=== PATIENT | male | born 1975 | race Caucasian/White ===

== ENCOUNTER 2020-04-17 13:17 | Inpatient (IN) | payer SELFPAY ==
[~2020-04-17] VITALS: Ht 172.7 cm; Wt 108.0 kg
[2020-04-17 13:41] LABS: NITRITE NEGATIVE (NEGATIVE)
[2020-04-17 13:42] LABS: BILIRUBIN NEGATIVE (NEGATIVE); KETONE MODERATE mg/dL (NEGATIVE); UROBILINOGEN NORMAL (NORMAL)
[2020-04-17 13:47] LABS: UDS - AMPHET POSITIVE QUAL (NEGATIVE); UDS - BARB NEGATIVE QUAL (NEGATIVE); UDS - BENZO POSITIVE QUAL (NEGATIVE); UDS - COCAINE NEGATIVE QUAL (NEGATIVE); UDS - OPIATE NEGATIVE QUAL (NEGATIVE); UDS - PCP NEGATIVE QUAL (NEGATIVE); UDS - THC NEGATIVE QUAL (NEGATIVE)
[2020-04-17 13:51] LABS: RED CELLS - URINE 0-5 /hpf (0-5); WHITE CELLS - URINE 0-5 /hpf (NEGATIVE)
[2020-04-17 13:52] LABS: BACTERIA FEW /hpf (NEGATIVE); EPITHELIAL CELLS 0-5 /hpf (0-5); HYALINE CAST 0-5 /lpf (NONE SEEN)
--- NOTE | 2020-04-17 14:00 | NUR ---
PATIENT REMAINS RESTING WITH EYES CLOSED AROUSES WITH PAINFUL STIMULAS
[2020-04-17 15:00] VITALS: BP 128/74
[2020-04-17 15:17] LABS: BASOPHILS 0.1 % (0-2); EOSINOPHILS 0 % (0-7); HEMATOCRIT 42.4 % (42.0-54.0); HEMOGLOBIN 14.7 g/dL (13.5-17.5); IMMATURE GRANULOCYTES 0.4 % (0-5); LYMPHOCYTES 10.9 % (15-50); MCH 31.5 pg (26.0-34.0); MCHC 34.7 g/dL (31.0-37.0); MCV 90.8 fL (80.0-100.0); MEAN PLATELET VOLUME 10.8 fL (7.4-10.4); MONOCYTES 8.6 % (2-11); PLATELET COUNT 228 10x3/uL (130-400); RBC 4.67 10x6/uL (4.20-6.10); RDW 14.1 % (11.5-14.5); WBC 17.8 10x3/uL (4.8-10.8)
[2020-04-17 15:28] LABS: CALCIUM 8.4 mg/dL (8.5-10.1); CARBON DIOXIDE 24.1 mmol/L (21.0-32.0); CREATININE - SERUM 1.4 mg/dL (0.6-1.3); POTASSIUM - SERUM 3.1 mmol/L (3.5-5.1)
[2020-04-17 15:35] LABS: ALBUMIN 3.3 g/dL (3.4-5.0); BILIRUBIN - TOTAL 1.43 mg/dL (0.2-1.3); PROTEIN - SERUM 7.1 g/dL (6.4-8.2)
[2020-04-17 17:00] VITALS: BP 124/71
[2020-04-17 19:00] VITALS: BP 122/75
--- NOTE | 2020-04-17 21:45 | NUR ---
PT DENIES SI AND HI. RASH ON AND WITH OPEN SITE UPPER LEFT REGION. ULCERATIVE AREA ABOVE LEFT KNEE. ULCERATIVE AREA ON RIGHT WRIST. PT IS PICKING AT WOUND SITES AND AT TIMES THEY ARE BLEEDING AND SEEPING.
[2020-04-17 23:00] VITALS: BP 157/100
--- NOTE | 2020-04-17 23:00 | NUR ---
WOUNDS DRESSED TO PREVENT PT PICKING AT SITES.
--- NOTE | 2020-04-17 23:09 | NUR ---
PT BATHED, WOUNDS CULTURED AND SENT TO LAB. PT RESTING IN BED, CALL LIGHT WITHJUAN R CARRASCO, WILL CONTINUE TO MONITOR.
[2020-04-18 00:30] VITALS: BP 150/84
[2020-04-18 01:48] VITALS: BP 121/60
--- NOTE | 2020-04-18 02:04 | NUR ---
INFUSION COMPLETE AT THIS TIME
--- NOTE | 2020-04-18 04:45 | NUR ---
POTASSIUM INFUSION COMPLETE AT THIS TIME
[2020-04-18 04:55] VITALS: BP 136/73
--- NOTE | 2020-04-18 05:00 | NUR ---
900ML OF URINE OUTPUT DRAINED FROM FRAZIER CATHETER AT THIS TIME
[2020-04-18 07:37] LABS: BASOPHILS 0.1 % (0-2); EOSINOPHILS 0.8 % (0-7); HEMATOCRIT 39.3 % (42.0-54.0); HEMOGLOBIN 13.5 g/dL (13.5-17.5); IMMATURE GRANULOCYTES 0.4 % (0-5); LYMPHOCYTES 14.6 % (15-50); MCHC 34.4 g/dL (31.0-37.0); MCV 90.3 fL (80.0-100.0); MEAN PLATELET VOLUME 10.7 fL (7.4-10.4); MONOCYTES 6.2 % (2-11); NEUTROPHILS 77.9 % (40-80); PLATELET COUNT 198 10x3/uL (130-400); RBC 4.35 10x6/uL (4.20-6.10)
[2020-04-18 07:38] LABS: WBC 9.7 10x3/uL (4.8-10.8)
[2020-04-18 08:00] LABS: CALCIUM 8.3 mg/dL (8.5-10.1); CARBON DIOXIDE 26.4 mmol/L (21.0-32.0); CHLORIDE - SERUM 106 mmol/L (98-107); GLUCOSE 88 mg/dL (74-106); POTASSIUM - SERUM 3.3 mmol/L (3.5-5.1); SODIUM 141 mmol/L (136-145)
[2020-04-18 08:01] LABS: CALC OSMOLALITY 282 mosm/kg (275-300); CREATININE - SERUM 0.8 mg/dL (0.6-1.3); UREA NITROGEN 21 mg/dL (7-18); eGFR NON AFRICAN AMERICAN > 90 mL/min (90-120)
[2020-04-18 08:15] VITALS: BP 131/86
--- NOTE | 2020-04-18 08:19 | NUR ---
awakened easily for breakfast. denmies need or c/o. appetite good
--- NOTE | 2020-04-18 09:20 | NUR ---
CLEOMYCIN 600 MG INFUSION COMPLETED @ 919
--- NOTE | 2020-04-18 16:32 | NUR ---
MEDICATION REGIMEN EXPLAINED TO PATIENT AND HE STATES HE IS ALLERGIC TO HALDOL. ASKED THE PATIENT WHAT REACTION HE HAS TO HALDOL AND HE STATES "IF YOU'RE GOING TO GIVE THAT TO ME THEN I NEED BENADRYL, BUT I DON'T WANT ANY DAMN HALDOL, IF YOU GIVE ME HALDOL, I'LL MARGARITA Y'ALL, AND I AIN'T TAKING NO GEODON EITHER, YOU CAN BRING ME ATIVAN AND SOMETHING TO DRINK AND LET ME GO. YOU AIN'T DOING NOTHING FOR ME ANYWAY." ATTEMPTED TO EDUCATE PATIENT REGARDING ANTIBIOTIC ADMINISTRATION, HE IS AGREEABLE TO ANTIBIOTICS IF HE GETS SODA.
[2020-04-18 16:40] VITALS: BP 136/88
--- NOTE | 2020-04-18 16:50 | NUR ---
DINNER TRAY PROVIDED TO PATIENT WITH 2 SODAS, MEDICATIONS ADMINISTERED, DENIES OTHER NEEDS, CALM AT THIS TIME.
--- NOTE | 2020-04-18 17:22 | NUR ---
CLINDAMYCIN INFUSION COMPLETE AT THIS TIME.
--- NOTE | 2020-04-18 18:48 | NUR ---
PT RESTING QUIETLY ON ER STRETCHER, RESPIRATIONS EVEN AND UNLABORED, NAD NOTED.
[2020-04-18 19:00] VITALS: BP 117/78
[2020-04-19] VITALS (16 sets, daily range): BP systolic 105–139; BP diastolic 62–97; BMI 36.7
--- NOTE | 2020-04-19 04:00 | NUR ---
PT IV INFILTATED PT DENIES PAIN IV D/C AND RESTARTED
--- NOTE | 2020-04-19 07:08 | NUR ---
REPORT GIVEN TO KALYN TRUJILLO.
--- NOTE | 2020-04-19 07:31 | NUR ---
CALL TO [facility] NURSE FOR CONSULT ON PTS WOUNDS.
--- NOTE | 2020-04-19 07:59 | NUR ---
PT SAT UP AND ATE BREAKFAST, PLEASANT, NO COMPLAINTS.
--- NOTE | 2020-04-19 09:04 | NUR ---
LAB INFORMED NURSE PT HAS STAPH INFECTION IN LEFT ARM. PLACE ON CONTACT PRECAUTIONS.
--- NOTE | 2020-04-19 09:15 | NUR ---
PT CONT. TO REST ON ER BED. IV INFUSING NO DISTRESS NOTED.
--- NOTE | 2020-04-19 09:38 | NUR ---
RESTING WITH EYES CLOSED NO DISTRESS NOTED.
--- NOTE | 2020-04-19 12:30 | CN ---
PATIENT NAME:STEPHANIE MARTINEZ MEDICAL RECORD: [id number] : 75 LOCATION:[facility]- ADMIT DATE: 04/18/20 ACCOUNT: [id number] CONSULTING PHYSICIAN: BEV MEDEROS MD REFERRING PHYSICIAN: TESSA CONNOLLY MD DATE OF CONSULTATION: 04/18/2020 IDENTIFYING DATA: The patient is 44 years old and he is admitted to the hospital voluntarily. CHIEF COMPLAINT: Homicidal thoughts. HISTORY OF PRESENT ILLNESS: The patient apparently is homeless and has been living the [facility] near a convenience store. He was making some sort of a nuisance of himself at the convenience store and the police and ambulance crew brought him to the hospital. He required medication to calm him because of his aggressive, agitated behavior. His urine drug screen is positive for amphetamines. He is not really able to give much of a useful history because he is yelling at people not in the room. He is wanting to kill a man who is to his mother because apparently that man is a drug dealer. I cannot get specifics about this. I know the patient has been using methamphetamine, but he is giving the appearance of someone who is manic and psychotic and delusional and it has been long enough since she has been here that this is not an acute episode related exclusively to drug addiction or use. ASSESSMENT: 1. Paranoid schizophrenia. 2. Amphetamine abuse. PLAN: This patient is delusional agitated and dangerous. He needs to be quickly and rapidly medicated. I know he has an elevated white count and a cellulitis that is apparently going to be treated, but as soon as it is practical to move him into an inpatient setting, he should be transferred. I have ordered scheduled and p.r.n. medications and discussed the situation with nursing staff. Again, this man is delusional, dangerous and his first need is to be calmed and I suspect after that he will need inpatient psychiatric treatment and not substance abuse treatment. I will, however, reassess his situation tomorrow. TRANSINT:[id number] Voice Confirmation ID: [id number] DOCUMENT ID: [id number] BEV MEDEROS MD at 1230 CC: [id number] DICTATION DATE: 04/18/20 1601 COMPOSITION FLOOR SETTER: 04/18/[address] [facility] [address] [id number]
--- NOTE | 2020-04-19 12:48 | NUR ---
STATES HE IS GOING TO BACK OFF HIS MEDS AND SOON HE IS WELL WE CAN LOOK FOR PSYCH PLACEMENT.
--- NOTE | 2020-04-19 13:11 | NUR ---
CHANGE DRESSING TO RIGHT ARM. PT GRACIELA. WELL. SLEPT THROUGH PROCEDURE.
--- NOTE | 2020-04-19 16:33 | NUR ---
PT TO ICU FROM ER. ABLE TO TRANSFER SELF FROM STRETCHER TO BED WITH STANDBY ASSIST FOR BALANCE. PT HAS IV TO RIGHT FOOT WITH NS WITH 40K INFUSING. PT IS ORIENTED BUT "GROGGY." ABLE TO ANSWER QUESTIONS. STATES HE HAS PSYCH MEDICATION AT HOME BUT HE DOESN'T TAKE IT "BECAUSE IT DOESN'T WORK." DID NOT REMEMBER NAMES OF MEDICATION. PT ON CONTACT PRECAUTIONS. DRESSING TO RIGHT ARM. RASH NOTED TO ABD. SCRATCH ON NOSE. SORE TO RIGHT KNEE. PT STATES HE'S BEEN TO THE DOCTOR SEVERAL TIMES ABOUT THE RASH/BUMPS ON HIS ABD BUT THAT THEY "NEVER TELL HIM WHAT IT IS." CALL LIGHT IN REACH.
--- NOTE | 2020-04-19 21:17 | PN ---
PATIENT:STEPHANIE MARTINEZ MEDICAL RECORD: [id number] LOCATION:[facility] D.230 ADMISSION DATE: 04/18/20 PROGRESS NOTE DATE OF SERVICE: 04/19/2020 SUBJECTIVE: The patient's case was discussed with staff. He has no new complaint. OBJECTIVE: The patient is less agitated and less paranoid. He is still angry with his stepfather but no longer wants to kill him. ASSESSMENT: Paranoid schizophrenia. PLAN: The patient is minimizing his methamphetamine use. 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 He is still in need of inpatient psychiatric care once medically stabilized. NTS:[id number] Voice Confirmation ID: [id number] DOCUMENT ID: [id number] BEV MEDEROS MD at 2117 CC: [id number] DICTATION DATE: 04/19/20 1346 SHUFFLE BOARD OPERATOR: 04/19/20 1800 ADM IN [id number] [place] [address]
--- NOTE | 2020-04-19 22:41 | NUR ---
PT CONTINUES TO PULL LEADS OFF OF CHEST AND PULL BLOOD PRESSURE CUFF OFF. EXPLAINED TO PT THE IMPORTANCE OF MONITORING HIM, PT "STATED, IT IS ANNOYING" PT ACCEPTED MEDICATIONS WITH OUT COMPLICATIONS AND TURNED OVER AND WENT TO SLEEP. BED IN LOWEST POSITION, CALL LIGHT IN REACH, SIDE RAILS UP X3. WILL CONTINUE TO MONITOR
--- NOTE | 2020-04-20 04:55 | NUR ---
HAVE TRIED SEVERAL TIMES THROUGH THE NIGHT TO GET PT TO KEEP BP CUFF AND EKG LEADS ON, HAVE EXPLAINED WE NEED TO MONITOR HIM WHILE HE IS HERE, BUT PT. CONTINUES TO REFUSE
--- NOTE | 2020-04-20 05:53 | NUR ---
PT. WOKE UP SITTING ON THE SIDE OF THE BED, ASKED FOR A CUP OF WATER. BROUGHT WATER TO PT. AND FOUND PT. TO HAVE PCKED OFF ALL HIS SCABS AND IS NOW YELLING AND SWEARING STATING, "ALL YOU HAVE DONE IS KIDNAPPED ME" TRIED TO REASSURE PT. WE ARE TRYING TO HELP HIM, ASKED HIM IF WE COULD CLEAN HIS HEAD AND FACE UP AND HE REPLIED, "LEAVE ME THE F.... ALONE" WILL CONTINUE TO MONITOR
--- NOTE | 2020-04-20 07:10 | NUR ---
REPORT RECEIVED FROM OFF GOING NURSE AND PATIENT CARE ASSUMED. PATIENT LAYING IN BED ON RT SIDE WITH EYES CLOSED AND BREATHING EVENLY. REPORTED FROM OFF GOING NURSE, PATIENT HAS REFUSED TO HAVE VITAL SIGNS TAKEN, PATIENT REMOVED BP CUFF AND REMOVED ELOECTRODES.PATIENT DOES HAVE IV TO RT FOOT INFUSING . WILL CONTINUE WITH PLAN OF CARE. SR UP X 2 BED IN LOW POSITION AND CALL LIGHT IN REACH.
[2020-04-20 11:48] VITALS: BP 128/72
--- NOTE | 2020-04-21 | NUR ---
PT SLEEPING NO DISTRESS NOTED WILL CONTINUE TO MONITOR STILL REFUSING MONITOR OR VS
[2020-04-21 04:21] LABS: BASOPHILS 0.4 % (0-2); EOSINOPHILS 2.3 % (0-7); HEMATOCRIT 43.1 % (42.0-54.0); IMMATURE GRANULOCYTES 1.1 % (0-5); LYMPHOCYTES 23.8 % (15-50); MCH 31.6 pg (26.0-34.0); MCHC 34.8 g/dL (31.0-37.0); MCV 90.7 fL (80.0-100.0); MEAN PLATELET VOLUME 10.6 fL (7.4-10.4); MONOCYTES 7.3 % (2-11); NEUTROPHILS 65.1 % (40-80); RBC 4.75 10x6/uL (4.20-6.10); RDW 13.6 % (11.5-14.5); WBC 8.4 10x3/uL (4.8-10.8)
[2020-04-21 04:22] LABS: PLATELET COUNT 285 10x3/uL (130-400)
[2020-04-21 04:31] LABS: ALBUMIN 2.8 g/dL (3.4-5.0); ALKALINE PHOSPHATASE 57 U/L (30-120); ALT (SGPT) 26 U/L (10-68); BILIRUBIN - TOTAL 0.38 mg/dL (0.2-1.3); CALC OSMOLALITY 273 mosm/kg (275-300); CALCIUM 8.9 mg/dL (8.5-10.1); CARBON DIOXIDE 28.2 mmol/L (21.0-32.0); CHLORIDE - SERUM 104 mmol/L (98-107); CREATININE - SERUM 0.8 mg/dL (0.6-1.3); GLUCOSE 94 mg/dL (74-106); POTASSIUM - SERUM 4.6 mmol/L (3.5-5.1); PROTEIN - SERUM 6.7 g/dL (6.4-8.2); SODIUM 138 mmol/L (136-145); UREA NITROGEN 6 mg/dL (7-18); eGFR NON AFRICAN AMERICAN > 90 mL/min (90-120)
--- NOTE | 2020-04-21 06:30 | NUR ---
PT AWAKE AGITATED AND RESTLESS MEDICATED SEE EMAR PRN ATIVAN IM
--- NOTE | 2020-04-21 07:10 | NUR ---
REPORT RECEIVED FROM SALES DEVELOPMENT DIRECTOR AND PATIENT CARE ASSUMED. PATEINT LAYING IN BED ON LEFT SIDE WITH EYES CLOSED AND BREATHING EVENLY. NO VS AVAILABLE. PATIENT CONTINUES TO REFUSE TO KEEP MONITORING EQUIPMENT IN PLACE. IV TO RT FOOT INFUSING NSK+40 100 ML. WILL CONTINUE WITH PLAN OF CARE. SR UP X 2 BED IN LOW POSITION AND CALL LIGHT IN REACH.
--- NOTE | 2020-04-21 09:56 | NUR ---
PATIENT IS AWAKE CALM AND COOPERATIVE. PATIENT ANSWERED QUESTIONS FOR TEST CONSULTANT. GAVE PATIENT SPRITE REQUESTED. WILL CONTINUE TO MONITOR. SR UP X2 BED IN LOW POSITION AND CALL LIGHT IN REACH.
--- NOTE | 2020-04-21 11:59 | PN ---
PATIENT:STEPHANIE MARTINEZ MEDICAL RECORD: [id number] LOCATION:[facility] D.230 ADMISSION DATE: 04/18/20 PROGRESS NOTE DATE OF SERVICE: 04/20/2020 SUBJECTIVE: The patient's case was discussed with staff. He has no new complaint. OBJECTIVE: The patient is still making some paranoid delusional statements. He denies that he wants to kill his father. ASSESSMENT: Paranoid schizophrenia. PLAN: Once medically stabilized, the patient should be transferred to acute inpatient psychiatric care. TRANSINT:[id number] Voice Confirmation ID: [id number] DOCUMENT ID: [id number] BEV MEDEROS MD at 1159 CC: [id number] DICTATION DATE: 04/20/20 1419 TEMPERING OVEN OPERATOR: 04/20/20 2155 ADM IN [id number] [place] [address]
--- NOTE | 2020-04-21 18:08 | NUR ---
PATIENT CONTINUES TO BE CALM AND COOPERATIVE. WILL CONTINUE TO MONITOR. SR UP X 2 BED IN LOW POSIIION AND CALL LIGHT IN REACH.
--- NOTE | 2020-04-21 18:40 | NUR ---
PATIENT ACCIDENTLY PULLED OUT IV TO R FOOT. PATIENT VERY DIFFICULT ACCESS. CALLED EMILIE [address] DR, RECEIVED NEW ORDER TO DC IV FLUIDS AND CLINDAMYCIN IV. NEW ORDER RECEIVED FOR CLINDAMYCIN 300 TID.
--- NOTE | 2020-04-21 19:00 | NUR ---
REPORT RECEIVED ATTEMPT TO ASSESS AND GET V/S UNSUCCESSFUL PT REFUSES. NO IV ACCESS PER DAYSHIFT NURSE AWARE OK NOT TO RESTART AND ANTIBIOTICS CHANGED TO ORAL
--- NOTE | 2020-04-21 23:00 | NUR ---
PT RESTING NO DISTRESS NOTED WILL CONT TO MONITOR
--- NOTE | 2020-04-22 03:30 | NUR ---
LAB HERE FOR AM LABS
[2020-04-22 04:47] LABS: BASOPHILS 0.3 % (0-2); EOSINOPHILS 2.8 % (0-7); HEMATOCRIT 45.6 % (42.0-54.0); HEMOGLOBIN 15.5 g/dL (13.5-17.5); IMMATURE GRANULOCYTES 1.6 % (0-5); LYMPHOCYTES 17.1 % (15-50); MCH 30.8 pg (26.0-34.0); MCV 90.7 fL (80.0-100.0); MEAN PLATELET VOLUME 10.9 fL (7.4-10.4); MONOCYTES 6.5 % (2-11); NEUTROPHILS 71.7 % (40-80); PLATELET COUNT 330 10x3/uL (130-400); RBC 5.03 10x6/uL (4.20-6.10); RDW 13.8 % (11.5-14.5)
[2020-04-22 04:57] LABS: CALC OSMOLALITY 272 mosm/kg (275-300); CALCIUM 8.9 mg/dL (8.5-10.1); CARBON DIOXIDE 29.7 mmol/L (21.0-32.0); CHLORIDE - SERUM 103 mmol/L (98-107); CREATININE - SERUM 0.9 mg/dL (0.6-1.3); GLUCOSE 91 mg/dL (74-106); POTASSIUM - SERUM 4.1 mmol/L (3.5-5.1); SODIUM 137 mmol/L (136-145); UREA NITROGEN 10 mg/dL (7-18); eGFR NON AFRICAN AMERICAN > 90 mL/min (90-120)
--- NOTE | 2020-04-22 05:00 | NUR ---
ANSWERED PTS CALL LIGHT. PT TO BEDSIDE COMMODE LARGE BM PT ABLE TO PERFORM ADLS INDEPENDENTLY
--- NOTE | 2020-04-22 07:10 | NUR ---
REPORT RECEIVED FROM NIGHT SHIFTAND PATIENT CARE ASSUMED . PATIENT PACING IN ROOM, TALKATIVE WITH RAPID SPEECH, FLIGHT OF IDEAS, FRIENDLY AND COOPERATIVE. NO VS AVAILABLE PT REFUSES. WILL CONTINUE WITH PLAN OF CARE. CALL LIGHT IN REACH.
--- NOTE | 2020-04-22 09:00 | PN ---
PATIENT:STEPHANIE MARTINEZ MEDICAL RECORD: [id number] LOCATION:[facility].230 ADMISSION DATE: 04/18/20 PROGRESS NOTE DATE OF SERVICE: 04/21/2020 SUBJECTIVE: The patient's case was discussed with staff. He has no new complaint. OBJECTIVE: The patient is in good behavioral control with poor insight about his situation. He does tolerate his medications well. He denies that he would seek to harm himself or others. ASSESSMENT: Paranoid schizophrenia. PLAN: The patient is not wanting to go from here to inpatient psychiatric care. I am recommending it. He does not currently have symptoms that would necessitate his transfer to a psychiatric hospital against his will. He wants to go to [place], [place], where he says he has family, friends and a place to stay and that he will follow up with mental health there. I do not think this is a good idea. I do not think it is ideal by any means, but he is not currently suicidal or homicidal or gravely disabled. His long-term prognosis will be largely contingent upon his abstinence from methamphetamine, which is something he says he can and will do and he does not want any kind of residential treatment. He says he will go to Narcotics Anonymous after he is released. TRANSINT:[id number] Voice Confirmation ID: [id number] DOCUMENT ID: [id number] BEV MEDEROS MD at 0900 CC: [id number] DICTATION DATE: 04/21/20 1304 SPAGHETTI PRESS HELPER: 04/21/20 2129 ADM IN [facility] [address] [place] [address]
[2020-04-22 11:09] VITALS: Ht 172.7 cm; Wt 108.0 kg
[2020-04-22] MEDS ORDERED: CLEOCIN HCL300 MG PO (15:02)
--- NOTE | 2020-04-23 11:11 | PN ---
PATIENT:STEPHANIE MARTINEZ MEDICAL RECORD: [id number] LOCATION:[facility] D.230 ADMISSION DATE: 04/18/20 PROGRESS NOTE DATE OF SERVICE: 04/22/2020 SUBJECTIVE: The patient's case was discussed with staff. He has no new complaint. OBJECTIVE: The patient is in good behavioral control. He has poor insight about his situation. ASSESSMENT: Schizophrenia. PLAN: The patient has no evidence of acute or direct dangerousness. He has no thoughts of wanting to harm himself or others and he is fully oriented. He does not want to go to any kind of substance abuse treatment or inpatient psychiatric care. He does want to go home. His home is in [place], [place]. He has a car. He says he has money and he is wanting to be discharged. I know he has been changed over to oral antibiotics and unless there is some medical reason that he needs to stay in the hospital, he is certainly appropriate to leave from a psychiatric standpoint. His initial behaviors were the result of methamphetamine use and an underlying chronic mental illness. If he will stay on his medicines and have followup with his psychiatrist in [place], his prognosis is fair, especially if he does not use drugs anymore, which I think is questionable. TRANSINT:[id number] Voice Confirmation ID: [id number] DOCUMENT ID: [id number] BEV MEDEROS MD at 1111 CC: [id number] DICTATION DATE: 04/22/20 1556 OWNER ORAL SURGEON: 04/23/20 0253 DIS IN 04/22/[id number] [place] [address]
== END 2020-04-22 15:53 | disposition home or self-care (01) | DRG 603 ==
LOC: D.ER 13:17 → D.EDHOLD 17:23 → OBSVTIME 17:23 → D.EDHOLD 04-18 16:57 → D.ICU 04-18 16:57
PROVIDERS: Emergency Medicine; ADMIT Legal Medicine; ATTEND Legal Medicine
DX: L03.90 Cellulitis, unspecified (principal); F20.0 Paranoid schizophrenia; L73.9 Follicular disorder, unspecified; R45.850 Homicidal ideations; F15.10 Other stimulant abuse, uncomplicated; E87.6 Hypokalemia; D72.829 Elevated white blood cell count, unspecified